=== PATIENT | male | born 1960 | race African-American/Black ===

== ENCOUNTER 2021-11-01 15:14 | Emergency (ER) | payer MEDICARE ==
[~2021-11-01] VITALS: Ht 175.3 cm; Wt 91.0 kg
[2021-11-01] MEDS ORDERED: ULTRAM50 MG PO (15:40)
[2021-11-01] MEDS ORDERED: AMLODIPINE BESY10 MG PO (15:40)
[2021-11-01] MEDS ORDERED: LISINOPRIL10 MG PO (15:40)
[2021-11-01] MEDS ORDERED: METFORMIN HCL500 MG PO (15:40)
[2021-11-01] MEDS ORDERED: SODIUM CHLORIDE 0.9% 50ML 50 ML ONE (16:11)
[2021-11-01] MEDS ORDERED: IOPAMIDOL 370 MG/ML 200 ML INFUS..BTL INJ ONE (16:11)
[2021-11-01] MEDS ORDERED: LEVOFLOXACIN 500 MG TAB PO STA (16:50)
[2021-11-01] MEDS ORDERED: CIPRO500 MG PO (16:53)
[2021-11-01] MEDS ORDERED: CIPROFLOXACIN 500 MG TAB PO SCH (17:00)
[2021-11-01] MEDS ORDERED: CIPROFLOXACIN 500 MG TAB ONE (17:03)
== END 2021-11-01 16:58 | disposition home or self-care (01) ==
LOC: FSED 15:20
DX: N39.0 Urinary tract infection, site not specified (principal); R30.0 Dysuria; R10.30 Lower abdominal pain, unspecified; E11.65 Type 2 diabetes mellitus with hyperglycemia; I10 Essential (primary) hypertension
CPT/HCPCS: 74177; 80053; 81003; 85025; 99284; Q9967